=== PATIENT | male | born 1995 | race Two or more races ===

== ENCOUNTER 2016-10-11 20:57 | Emergency (ER) | payer OTHER ==
[2016-10-11 21:05] VITALS: BP 112/59
--- NOTE | 2016-10-11 21:39 | UC ---
Skin Complaint HPI - HPI Summary HPI Summary: This is an otherwise healthy 21 yo male who presented with a 3d h/o a cyst under his L axilla. No associated fevers or tenderness. No similar areas of swelling. No h/o similar symptoms. He has been trying to pop it on his own at home. <BuffyamosTristan trammell - Last Filed: 10/11/16 21:33> <Shae Stevens - Last Filed: 10/13/16 08:05> - History of Current Complaint Chief Complaint: UCSkin Stated Complaint: CYST UNDER ARM - Allergy/Home Medications Allergies/Adverse Reactions: Allergies Allergy/AdvReac Type Severity Reaction Status Date / Time Nuts Allergy Unknown Uncoded 10/11/16 21:05 Reaction Details Plants and trees Allergy Unknown Uncoded 10/11/16 21:05 Reaction Details Home Medications: Home Medications Otc Allergy Med* 10/11/16 [History] Review of Systems Constitutional: Negative Skin: Rash Eyes: Negative ENT: Negative Respiratory: Negative Cardiovascular: Negative Gastrointestinal: Negative Genitourinary: Negative Motor: Negative Neurovascular: Negative Musculoskeletal: Negative Neurological: Negative Psychological: Negative All Other Systems Reviewed And Are Negative: Yes <MonicaTristan - Last Filed: 10/11/16 21:33> PMH/Surg Hx/FS Hx/Imm Hx Previously Healthy: Yes - Surgical History Surgical History: None - Family History Known Family History: Positive: None Family History: NON CONTRIBUTORY - Social History Alcohol Use: None Substance Use Type: None Substance Use Comment - Amount & Last Used: from time to time Smoking Status (MU): Never Smoked Tobacco <MonicaTristan - Last Filed: 10/11/16 21:33> Physical Exam Triage Information Reviewed: Yes Appearance: Well-Appearing Vital Signs: Initial Vital Signs Temp 97.9 F 10/11/16 21:03 Pulse 53 10/11/16 21:03 Resp 16 10/11/16 21:03 BP 112/59 10/11/16 21:03 Pulse Ox 100 10/11/16 21:03 Vital Signs Reviewed: Yes Respiratory: Positive: Lungs clear, Normal breath sounds. Negative: Rhonchi, Stridor, Wheezing Cardiovascular: Positive: RRR, No Murmur Abdomen Description: Positive: Nontender Skin: Positive: Other - L axilla has a small mobile area of induration without fluctuance under the L axilla. minimal overlying erythema, minimal TTP <Tristan Anderson - Last Filed: 10/11/16 21:33> Vital Signs: Initial Vital Signs Temp 97.9 F 10/11/16 21:03 Pulse 53 10/11/16 21:03 Resp 16 10/11/16 21:03 BP 112/59 10/11/16 21:03 Pulse Ox 100 10/11/16 21:03 <Shae Stevens - Last Filed: 10/13/16 08:05> Course/Dx - Course Course Of Treatment: This is an otherwise healthy 21 yo male with a small early phlegmon under the L axilla. Only mild erythema without systemic symptoms. Antibiotics do not appear necessary at this time. Rx written for Bactrim with instructions to garbage pick up worker if the area becomes more swollen, tender and red. Otherwise recommend regular warm compresses. - Differential Diagnoses - Skin Complaint Differential Diagnoses: Abscess, Cellulitis, Urticaria - Diagnoses Provider Diagnoses: 1. Early abscess - L axilla <Tristan Anderson - Last Filed: 10/11/16 21:33> Discharge <Tristan Anderson - Last Filed: 10/11/16 21:33> <Shae Stevens - Last Filed: 10/13/16 08:05> - Discharge Plan Condition: Stable Disposition: HOME Prescriptions: Sulfamethox/Trimethoprim DS* [Bactrim DS 800/160 TAB*] 1 tab PO BID #14 tab Patient Education Materials: Abscess (ED) Referrals: No Primary Care Phys,NOPCP [Primary Care Provider] - Additional Instructions: Activity: no restrictions Instructions: 1. Apply warm compresses to the area several times daily to encourage drainage 2. A prescription for antibiotics has been sent to your pharmacy, I do not believe it is necessary right now. If the area becomes more red and inflammed, start taking the antibiotics as directed Attestation Statement User Type: Provider - I was available for consult. This patient was seen by the [facility]. The patient was not presented to, seen by, or examined by me. -Lisa <Shae Stevens - Last Filed: 10/13/16 08:05>
== END 2016-10-11 21:29 | disposition home or self-care (01) ==
LOC: UCEAST 20:57
DX: L02.412 Cutaneous abscess of left axilla (principal)
CPT/HCPCS: 99212; G0463

== ENCOUNTER 2018-03-15 10:33 | Emergency (ER) | payer MEDICAID, OTHER ==
[2018-03-15 10:39] VITALS: BP 105/56
--- NOTE | 2018-03-15 10:42 | UC ---
Respiratory Complaint HPI - HPI Summary HPI Summary: 22 yo male presents with sore throat, sinus pain/pressure/congestion, and dry cough for the last 4 days. He takes a daily claritin, but has not been taking anything else OTC for his symptoms. He also noticed an enlarged lymph node in the right side of his neck over the last few days. Denies fever, chills, SOB, chest pain, rash, n/v. - History of Current Complaint Chief Complaint: UCGeneralIllness Stated Complaint: FLU LIKE SYMPTOMS Time Seen by Provider: 03/15/18 10:42 Hx Obtained From: Patient Onset/Duration: Gradual Onset Severity Initially: Mild Severity Currently: Mild Pain Intensity: 3 Pain Scale Used: 0-10 Numeric Character: Cough: Nonproductive - Allergies/Home Medications Allergies/Adverse Reactions: Allergies Allergy/AdvReac Type Severity Reaction Status Date / Time Nuts Allergy Unknown Uncoded 10/11/16 21:05 Reaction Details Plants and trees Allergy Unknown Uncoded 10/11/16 21:05 Reaction Details Home Medications: Home Medications Loratadine 10 mg PO DAILY 03/15/18 [History Confirmed 03/15/18] PMH/Surg Hx/FS Hx/Imm Hx - Additional Past Medical History Additional PMH: Seasonal allergies - Surgical History Surgical History: None - Family History Known Family History: Positive: None Family History: NON CONTRIBUTORY - Social History Occupation: Employed Full-time Lives: With Family Alcohol Use: None Substance Use Type: None Substance Use Comment - Amount & Last Used: from time to time Smoking Status (MU): Never Smoked Tobacco Review of Systems All Other Systems Reviewed And Are Negative: Yes Constitutional: Positive: Negative Skin: Positive: Negative Eyes: Positive: Negative ENT: Positive: Sore Throat, Nasal Discharge, Sinus Congestion, Sinus Pain/ Tenderness Respiratory: Positive: Cough Cardiovascular: Positive: Negative Gastrointestinal: Positive: Negative Neurovascular: Positive: Negative Neurological: Positive: Negative Psychological: Positive: Negative Physical Exam - Summary Physical Exam Summary: GENERAL: NAD. WDWN. No pain distress. SKIN: No rashes, sores, lesions, or open wounds. HEENT: Head: AT/NC Eyes: Conjunctiva clear without inflammation or discharge. Ears: Hearing grossly normal. TMs intact, no bulging, erythema, or edema. Nose: Nasal mucosa pink and moist. NTTP maxillary and frontal sinus. Throat: Posterior oropharynx mild erythema and 2+ tonsillar enlargement. No exudates. Uvula midline. No hoarse voice or muffled voice. NECK: Supple. Right anterior cervical lymph node 1.0cm in size. Firm. Mobile. NTTP. CHEST: CTAB. No r/r/w. No accessory muscle use. Breathing comfortably and in no distress. CV: RRR. Without m/r/g. Pulses intact. Cap refill <2seconds NEURO: Alert. PSYCH: Age appropriate behavior. Triage Information Reviewed: Yes Vital Signs: Initial Vital Signs Temp 98 F 03/15/18 10:35 Pulse 63 03/15/18 10:35 Resp 16 03/15/18 10:35 BP 105/56 03/15/18 10:35 Pulse Ox 99 03/15/18 10:35 Laboratory Tests 03/15/18 10:51 Group A Strep Rapid Negative Vital Signs Reviewed: Yes Diagnostic Evaluation - Laboratory O2 Sat by Pulse Oximetry: 99 Respiratory Course/Dx - Course Course Of Treatment: POC strep negative. Suspect viral illness vs sinusitis/ pharyngitis. Pt prefers to be on anbx at this time. Advised to give his symptoms another 2-3 days and if no improvement may start amoxicillin. Advised to monitor his enlarged right lymph node and if worsens or does not improve s/p illness to be re-evaluated. - Differential Dx/Diagnosis Provider Diagnosis: Sinusitis, Anterior cervical lymphadenopathy Discharge - Sign-Out/Discharge Documenting (check all that apply): Patient Departure All imaging exams completed and their final reports reviewed: No Studies - Discharge Plan Condition: Stable Disposition: HOME Prescriptions: Amoxicillin PO (*) [Amoxicillin 875 MG (*)] 875 mg PO BID #14 tab Patient Education Materials: Sinusitis (ED) Referrals: No Primary Care Phys,NOPCP [Primary Care Provider] - Additional Instructions: If you develop a fever, shortness of breath, chest pain, new or worsening symptoms - please call your PCP or go to the ED. - Billing Disposition and Condition Condition: STABLE Disposition: Home - Attestation Statements Provider Attestation: I was available for consult. This patient was seen by the [facility]. The patient was not presented to, seen by, or examined by me. -Lisa
== END 2018-03-15 11:07 | disposition home or self-care (01) ==
LOC: UCEAST 10:33
DX: J32.9 Chronic sinusitis, unspecified (principal); R59.0 Localized enlarged lymph nodes; Z91.018 Allergy to other foods; Z91.048 Other nonmedicinal substance allergy status
CPT/HCPCS: 87651; 99212; G0463

== ENCOUNTER 2018-09-23 22:52 | Emergency (ER) | payer OTHER ==
[2018-09-23] MEDS ORDERED: Albuterol/Ipratropium NEB.SOL* Albuterol 2.5 MG/Ipratropium 0.5 MG 3 ML INH ONE (23:04)
[2018-09-23] MEDS ORDERED: methylPREDNISolone 125 MG* 2 ML VIAL IV ONE (23:06)
[2018-09-23] MEDS ORDERED: Albuterol/Ipratropium NEB.SOL* Albuterol 2.5 MG/Ipratropium 0.5 MG 3 ML ONE (23:16)
[2018-09-23] MEDS ORDERED: Albuterol 2.5 MG/3 ML NEB.SOL* (0.083%) INH ONE (23:17)
[2018-09-23] MEDS: Albuterol 2.5 MG/3 ML NEB.SOL* (0.083%) INH SCH ×2 (23:21→23:35)
--- NOTE | 2018-09-23 23:22 | ED ---
Allergic Reaction/Systemic - HPI Summary HPI Summary: This patient is a 23 year old M presenting to ED with a chief complaint of allergic since 2229 today. Patient forgot to take his OTC Zyrtec allergy medication today and felt SOB while playing basketball. He states allergies to plants and trees. He reports itchiness. The patient rates the pain 0/10 in severity. Symptoms aggravated by nothing. Symptoms alleviated by nothing. - History of Current Complaint Chief Complaint: EDRespiratoryDistress Time Seen by Provider: 09/23/18 23:04 Hx Obtained From: Patient Onset/Duration: Started hours ago - 2229 today, Still Present Timing: Constant, Lasting Minutes - Since 2229 Severity Initially: Moderate Severity Currently: Moderate Pain Intensity: 0 Pain Scale Used: 0-10 Numeric Character: Pruritus Aggravating Factor(s): Nothing Alleviating Factor(s): Nothing Associated Signs And Symptoms: Positive: Other: - Pruritus, SOB - Allergies/Home Medications Allergies/Adverse Reactions: Allergies Allergy/AdvReac Type Severity Reaction Status Date / Time Nuts Allergy Unknown Uncoded 09/23/18 23:22 Reaction Details Plants and trees Allergy Unknown Uncoded 09/23/18 23:22 Reaction Details PMH/Surg Hx/FS Hx/Imm Hx Endocrine/Hematology History: Denies: Hx Diabetes, Hx Thyroid Disease Cardiovascular History: Denies: Hx Hypertension Respiratory History: Reports: Hx Asthma Denies: Hx Chronic Obstructive Pulmonary Disease (COPD) GI History: Denies: Hx Ulcer Infectious Disease History: No Infectious Disease History: Denies: Hx Clostridium Difficile, Hx Hepatitis, Hx Human Immunodeficiency Virus (HIV), Hx of Known/Suspected MRSA, Hx Tuberculosis, Hx Known/Suspected VRE , Hx Known/Suspected VRSA, History Other Infectious Disease, Traveled Outside the [place] in Last 30 Days - Family History Known Family History: Positive: None Family History: NON CONTRIBUTORY - Social History Alcohol Use: Rare Hx Substance Use: Yes Substance Use Type: Reports: Marijuana Substance Use Comment - Amount & Last Used: from time to time Hx Tobacco Use: No Smoking Status (MU): Never Smoked Tobacco Review of Systems Positive: Shortness Of Breath Skin: Other - Itchiness All Other Systems Reviewed And Are Negative: Yes Physical Exam - Summary Physical Exam Summary: VITAL SIGNS: Reviewed. GENERAL: Patient is a well-developed and nourished male who is lying comfortable in the stretcher. Patient is not in any acute respiratory distress. HEAD AND FACE: No signs of trauma. No ecchymosis, hematomas or skull depressions. No sinus tenderness. EYES: PERRLA, EOMI x 2, No injected conjunctiva, no nystagmus. EARS: Hearing grossly intact. Ear canals and tympanic membranes are within normal limits. MOUTH: Oropharynx within normal limits. NECK: Supple, trachea is midline, no adenopathy, no JVD, no carotid bruit, no c- spine tenderness, neck with full ROM CHEST: Symmetric, no tenderness at palpation LUNGS: minimal inspiratory and expiratory wheezes CVS: Regular rate and rhythm, S1 and S2 present, no murmurs or gallops appreciated. ABDOMEN: Soft, non-tender. No signs of distention. No rebound no guarding, and no masses palpated. Bowel sounds are normal. EXTREMITIES: FROM in all major joints, no edema, no cyanosis or clubbing. NEURO: Alert and oriented x 3. No acute neurological deficits. Speech is normal and follows commands. SKIN: Dry and warm Triage Information Reviewed: Yes Vital Signs On Initial Exam: Initial Vitals Temp Pulse Resp BP Pulse Ox 99.5 F 102 20 128/71 95 09/23/18 22:53 09/23/18 22:53 09/23/18 22:53 09/23/18 22:53 09/23/18 22:53 Vital Signs Reviewed: Yes Diagnostics - Vital Signs Vital Signs Temp Pulse Resp BP Pulse Ox 09/23/18 23:01 95 20 95 09/23/18 23:00 99 128/70 97 09/23/18 22:59 97 97 09/23/18 22:53 99.5 F 102 20 128/71 95 - Laboratory Lab Statement: Any lab studies that have been ordered have been reviewed, and results considered in the medical decision making process. Re-Evaluation - Re-Evaluation First Eval Re-Evaluation Time: 23:58 Change: Improved Comment: Patient reports feeling better. Patient will be discharged home with dx of asthma. Patient understands and agrees with this plan. Allergic Reaction Course/Dx - Course Course Of Treatment: This patient is a 23 year old M presenting to ED with a chief complaint of allergic since 2229 today. Patient received Ventolin, Duoneb , and Solu-Medrol. Patient reports feeling better. Patient will be discharged home with dx of asthma. Patient understands and agrees with this plan. - Diagnoses Provider Diagnoses: Asthma Discharge - Sign-Out/Discharge Documenting (check all that apply): Patient Departure - Discharge Patient Received Moderate/Deep Sedation with Procedure: No - Discharge Plan Condition: Stable Disposition: HOME Prescriptions: Albuterol HFA INHALER* [Ventolin HFA Inhaler*] 2 puff INH Q6H PRN #2 mdi PRN Reason: Sob/Wheezing predniSONE TAB* [Deltasone TAB*] 50 mg PO DAILY #5 tab Patient Education Materials: Asthma (ED) Referrals: [facility] [place] [facility] REFERRAL [Outside] - 2 Days Additional Instructions: Follow up with your primary care provider in 1-2 days. RETURN TO THE ER FOR WORSENING OR CHANGING SYMPTOMS. - Attestation Statements Document Initiated by Scribe: Yes Documenting Scribe: Anibal Hamlin Provider For Whom Anila is Documenting (Include Credential): Prabhu Fair MD Scribe Attestation: Anibal Llamas, scribed for Prabhu Fair MD on 09/24/18 at 0002. Status of Scribe Document: Ready
[2018-09-24 00:21] VITALS: BP 136/59
[2018-09-24] MEDS ORDERED: Albuterol HFA INHALER* 8 gm MDI INH SCH (01:00)
== END 2018-09-24 00:21 | disposition home or self-care (01) ==
LOC: ED 22:52
DX: J45.909 Unspecified asthma, uncomplicated (principal); R06.02 Shortness of breath
CPT/HCPCS: 96374; 99283; A9270-GY; J2930